=== PATIENT | male | born 1985 | race Caucasian/White ===

== ENCOUNTER 2019-09-28 12:39 | Emergency (ER) | payer SELFPAY ==
[2019-09-28 12:46] VITALS: BP 124/81
[2019-09-28] MEDS ORDERED: TETRACAINE HCL 0.5% OPH SOLN 4 ML OD ONE (12:55)
--- NOTE | 2019-09-28 12:57 | ER Document Report ---
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 Patient states that he felt as though something may have gotten into his eye. Patient was not using protective eyewear at the time. Patient does not wear glasses or contact lenses. Patient complains of right eye pain and redness. I have greeted and performed a rapid initial assessment of this patient. A comprehensive ED assessment and evaluation of the patient, analysis of test results and completion of the medical decision making process will be conducted by additional ED providers. - Related Data Allergies/Adverse Reactions: No Known Allergies Allergy (Verified 09/28/19 12:52) Physical Exam - Vital signs Vitals: Temp Pulse Resp BP Pulse Ox 97.8 F 100 14 124/81 98 09/28/19 12:44 09/28/19 12:44 09/28/19 12:44 09/28/19 12:44 09/28/19 12:44 - General General appearance: Appears well, Alert Notes: Sclera to right eye injected, patient with irregularity noted to the cornea of the right Course - Vital Signs Vital signs: Temp Pulse Resp BP Pulse Ox 97.8 F 100 14 124/81 98 09/28/19 12:52 09/28/19 12:44 09/28/19 12:44 09/28/19 12:44 09/28/19 12:44
[2019-09-28] MEDS ORDERED: ERYTHROMYCIN 0.5% OPH OINTMENT 3.5 GM (ER DISP) OD PRN (14:02)
--- NOTE | 2019-09-28 14:07 | ER Document Report ---
HPI - HPI Patient complains to provider of: right eye irritation Time Seen by Provider: 09/28/19 12:50 Onset: Other - Quality of pain: Achy Pain Level: 4 Context: 34-year-old male with no prior history presents emergency department with complaints of right eye irritation. Patient reports he was using a plasma cutting welding machine on . He was not wearing goggles. He reports he feels like a piece of metal flew in his right eye. Patient reports irritation since that time. He reports his right eye was throbbing yesterday but he took some Advil and when he woke up this morning the eye was not hurting just having irritation. Does not wear contacts or glasses. Denies other symptoms such as fever vomiting diarrhea. Reports sensitive to light, denies problems with his vision. Associated Symptoms: None Exacerbated by: Denies Relieved by: Denies Similar symptoms previously: No Recently seen / treated by doctor: No - EENT EENT: REPORTS: Eye problems - NEURO Neurology: REPORTS: Headache Past Medical History - General Information source: Patient - Social History Smoking Status: Never Smoker Family History: None Patient has suicidal ideation: No Patient has homicidal ideation: No - Medical History Medical History: Negative Surgical Hx: Negative Vertical Provider Document - CONSTITUTIONAL Agree With Documented VS: Yes Exam Limitations: No Limitations General Appearance: WD/WN, No Apparent Distress - HEENT HEENT: Atraumatic, Conjuctival Injection - right, Normocephalic, PERRLA - NECK Neck: Normal Inspection, Supple - RESPIRATORY Respiratory: No Respiratory Distress - CARDIOVASCULAR Cardiovascular: Regular Rate - MUSCULOSKELETAL/EXTREMETIES Musculoskeletal/Extremeties: MAEW, FROM - NEURO Level of Consciousness: Awake, Alert, Appropriate Motor/Sensory: No Motor Deficit - DERM Integumentary: Warm, Dry Course - Re-evaluation Re-evalutation: 09/28/19 16:21 34-year-old male presents with right eye irritation. Tetracaine drops were applied. Patient reported immediate relief of irritation after the tetracaine. Fluorescein stain was used. Neg debo. Sandoval lamp and the slit lamp were both used. Piece of foreign body noted at approximately at 0630 on the cornea. This was swept with a Q-tip and removed. Rust ring noted. Patient was instructed on erythromycin ointment. He was instructed on the importance of follow-up with e commerce merchandising coordinator this next week for recheck but to return to the emergency department immediately for any severe pain problems with his vision or any concerns. He verbalized understanding to all instructions. - Vital Signs Vital signs: Temp Pulse Resp BP Pulse Ox 97.8 F 100 14 124/81 98 09/28/19 12:52 09/28/19 12:44 09/28/19 12:44 09/28/19 12:44 09/28/19 12:44 Procedures - Eye Procedure Right Eye Irrigated w/ Saline (ccs): 20 Foreign body removal: Right Alcaine Drops Administered: Yes - tetracaine Fluorescein applied: Right Antibiotic Oinment/Drps Admin: Right eye Slit lamp used: Yes Notes: 09/28/19 16:17 Patient reports immediate relief of irritation after tetracaine drops. Eyes picture: 1 - foreign body removed, rust ring noted Discharge - Discharge Clinical Impression: Irritation of right eye, FOREIGN BODY REMOVAL RIGHT EYE Condition: Stable Disposition: HOME, SELF-CARE Instructions: Antibiotic Therapy ([facility]), Corneal Foreign Body with Rust ([facility]), Erythromycin ([facility]) Additional Instructions: *You have been evaluated for eye irritation, removal of foreign body from right eye *Use eye ointment as prescribed, half inch ribbon to the bottom lid of the right eye 3 times a day for the next 5 days *Good hand washing- *Follow up with an e commerce merchandising coordinator within the next week for recheck *Return to the emergency department for severe pain in your eye, decreased vision, allergic reaction as discussed, concerns
== END 2019-09-28 14:20 | disposition home or self-care (01) ==
LOC: ER 12:39
DX: T15.01XA Foreign body in cornea, right eye, initial encounter (principal); R51 Headache; X58.XXXA Exposure to other specified factors, initial encounter; Y93.89 Activity, other specified
CPT/HCPCS: 99283; 65222; J3490